=== PATIENT | female | born 1980 | race African-American/Black ===

== ENCOUNTER 2019-03-30 12:02 | Emergency (ER) | payer SELFPAY ==
--- NOTE | 2019-03-30 12:23 | ER Document Report ---
ED Medical Screen (RME) - General Chief Complaint: Abdominal Pain Stated Complaint: ABDOMINAL PAIN Time Seen by Provider: 03/30/19 12:15 Mode of Arrival: Ambulatory Information source: Patient Notes: Patient is a 39-year-old female G1, P0 who presents to the ER today approximately 4 months with no care. Patient states that she started having this pain that comes and goes in the right lower quadrant a few days ago with no burning with urination. Patient states that she has a mass in the right lower quadrant as well that she is concerned about. She has not taken a test since December when she had a positive one at home. TRAVEL OUTSIDE OF THE [place] IN LAST 30 DAYS: No - Related Data Allergies/Adverse Reactions: No Known Allergies Allergy (Unverified 03/30/19 12:05) Past Medical History - General Information source: Patient - Social History Chew tobacco use (# tins/day): No Frequency of alcohol use: None Drug Abuse: None Renal/ Medical History: Denies: Hx Peritoneal Dialysis Review of Systems - Review of Systems Female Genitourinary: See HPI Physical Exam - Vital signs Vitals: Temp Pulse Resp BP Pulse Ox 98.2 F 102 H 16 138/74 H 99 03/30/19 12:09 03/30/19 12:03/30/19 12:03/30/19 12:03/30/19 12:09 - Notes Notes: PHYSICAL EXAMINATION: GENERAL: Well-appearing and in no acute distress. ABDOMEN: Soft, no tenderness. No guarding, no rebound Course - Vital Signs Vital signs: Temp Pulse Resp BP Pulse Ox 98.2 F 102 H 16 138/74 H 99 03/30/19 12:03/30/19 12:03/30/19 12:03/30/19 12:03/30/19 12:09
--- NOTE | 2019-03-30 13:35 | RADIOLOGY REPORT (SQ) ---
EXAM DESCRIPTION: U/S OB 14+ TRNABD 1GES W/O DOP COMPLETED DATE/TIME: 03/30/2019 1:23 pm REASON FOR STUDY: 4 mos , no care, pain, mass? COMPARISON: None. TECHNIQUE: Static and Dynamic grayscale imaging performed of gravid uterus using transabdominal appr oac. Additional selected color Doppler and spectral images recorded. All stored on PACS. LIMITATIONS: None. FINDINGS: FETUSES SEEN:1 EGA: 19 weeks 1 day. Calculated using BPD,FL,HC,AC documented on images. Discrepancy with clinical d ates [place]: 08/23/2019 EFW: 295 g grams PERCENTILE: Not applicable. Fetus less than or equal to 20 weeks gestation. MACIE: Adequate amount. PLACENTA: Posterior. GRADE: I PRESENTATION: Variable. ANATOMY: HEART RATE: 158 beats per minute. FOUR CHAMBER HEART: Visualized. THREE VESSEL CORD: Yes. CORD INSERTION: Visualized. KIDNEYS AND BLADDER: Visualized. Appear normal. STOMACH: Visualized. Appears normal. SPINE: Normal as visualized. BRAIN AND LATERAL VENTRICLES: Visualized. Appear normal. OTHER: No other significant finding. MATERNAL ADNEXA: Ovaries are unremarkable. CERVICAL LENGTH: 2.4 cm. Closed. OTHER: Probable uterine fibroids. IMPRESSION: LIVING INTRAUTERINE . ESTIMATED GESTATIONAL AGE 19 WEEKS 1 DAY. NO VISUALIZED ANOMALIES. Trimester of : Second trimester - 13 weeks 1 day to 27 weeks 6 days. TECHNICAL DOCUMENTATION: JOB ID: [id number] [employer]- All Rights Reserved Reading location - IP/workstation name: [email or web address]
[2019-03-30 14:04] LABS: APPEARANCE,URINE CLEAR; BILIRUBIN,URINE NEGATIVE (NEGATIVE); COLOR,URINE STRAW; GLUCOSE, URINE NEGATIVE (NEGATIVE); KETONES,URINE NEGATIVE (NEGATIVE); LEUKOCYTE ESTERASE,URINE NEGATIVE (NEGATIVE); NITRITE,URINE NEGATIVE (NEGATIVE); PROTEIN,URINE NEGATIVE (NEGATIVE); URINE SPECIFIC GRAVITY 1.004; UROBILINOGEN,URINE NEGATIVE mg/dL (<2.0)
--- NOTE | 2019-03-30 15:27 | ER Document Report ---
ED General - General Chief Complaint: Abdominal Pain Stated Complaint: ABDOMINAL PAIN Time Seen by Provider: 03/30/19 12:15 Mode of Arrival: Ambulatory TRAVEL OUTSIDE OF THE [place] IN LAST 30 DAYS: No - HPI Notes: Patient is a 39-year-old female, , who presents to the emergency department for evaluation of her concerns of a mass in her abdomen. She states her last period was back in November. She states that when she took her positive test. She has not had any OB follow-up yet. She is still trying to work out insurance coverage. She denies any vaginal bleeding or discharge. She complains of some urinary frequency, denies any hematuria, or dysuria. No f bakari or chills. No nausea or vomiting. No other acute complaints or concerns. She denies any pain at this time. - Related Data Allergies/Adverse Reactions: No Known Allergies Allergy (Unverified 03/30/19 12:05) Past Medical History - General Information source: Patient - Social History Smoking Status: Never Smoker Chew tobacco use (# tins/day): No Frequency of alcohol use: None Drug Abuse: None Family History: Hypertension Patient has suicidal ideation: No Patient has homicidal ideation: No Renal/ Medical History: Denies: Hx Peritoneal Dialysis Review of Systems - Review of Systems Constitutional: No symptoms reported EENT: No symptoms reported Cardiovascular: No symptoms reported Respiratory: No symptoms reported Gastrointestinal: See HPI Genitourinary: No symptoms reported Female Genitourinary: See HPI Musculoskeletal: No symptoms reported Skin: No symptoms reported Neurological/Psychological: No symptoms reported Physical Exam - Vital signs Vitals: Temp Pulse Resp BP Pulse Ox 98.2 F 102 H 16 138/74 H 99 03/30/19 12:09 03/30/19 12:09 03/30/19 12:09 03/30/19 12:03/30/19 12:09 - Notes Notes: Vital signs reviewed, please refer to chart. Head is normocephalic, atraumatic. Pupils equal round, reactive to light. Neck is supple without meningismus. Heart is regular rate and rhythm. Lungs are clear to auscultation bilaterally. Abdomen is gravid with uterine fundus palpable just below the umbilicus. There is a 2-1/2 cm firm, palpable mass, nontender, and the right pelvis, the same consistency as the uterine body itself. No overlying skin changes. Extremities without cyanosis, clubbing. Posterior calves are nontender. Peripheral pulses are equal. Skin is warm and dry. Patient is awake, alert, neurological exam is nonfocal. Course - Re-evaluation Re-evalutation: 03/30/19 15:25 Patient presents emergency department for evaluation. The importance of evaluation by OB was stressed to the patient, and she voiced understanding. We will put in a referral to our on-call HEALTH INFORMATION TECHNOLOGIST. Patient had ultrasound and urinalysis. Urinalysis showed no definite abnormalities. Ultrasound revealed that this finding is most likely a fibroid. I will have the patient follow-up, she is to return to the ED with worsening or new concerning symptoms of any sort. - Vital Signs Vital signs: Temp Pulse Resp BP Pulse Ox 98.2 F 102 H 16 138/74 H 99 03/30/19 12:09 03/30/19 12:09 03/30/19 12:09 03/30/19 12:09 03/30/19 12:09 - Laboratory Result Diagrams: 03/30/19 15:03 03/30/19 15:03 Laboratory results interpreted by me: 03/30/19 12:26 Urine HCG, Qual POSITIVE H - Diagnostic Test Radiology reviewed: Reports reviewed Radiology results interpreted by me: 03/30/19 15:25 Obstetrics Ultrasound 03/30/19 12:16 IMPRESSION: LIVING INTRAUTERINE . ESTIMATED GESTATIONAL AGE 19 WEEKS 1 DAY. NO VISUALIZED ANOMALIES. Trimester of : Second trimester - 13 weeks 1 day to 27 weeks 6 days. Discharge - Discharge Clinical Impression: Uterine fibroid in antepartum period Condition: Stable Disposition: HOME, SELF-CARE Additional Instructions: On ultrasound, it appears that the lump you are feeling is a uterine fibroid. You need to follow-up with OB as soon as possible. Contact our on-call certified cytotechnologist, or the OB of your choice, upon discharge. If you develop vaginal bleeding, increased pain, or any other new or concerning symptoms, return immediately to the emergency department for evaluation. Referrals: NIKKI ALLEN MD [ACTIVE STAFF] - Follow up as needed
[2019-03-30 15:30] LABS: ABSOLUTE BASOPHILS # (AUTO) 0.1 10^3/uL (0.0-0.2); ABSOLUTE EOSINOPHILS # (AUTO) 0.1 10^3/uL (0.0-0.6); ABSOLUTE LYMPHOCYTES (AUTO) 1.9 10^3/uL (0.5-4.7); ABSOLUTE MONOCYTES (AUTO) 0.6 10^3/uL (0.1-1.4); ABSOLUTE NEUT (AUTO) 12.6 10^3/uL (1.7-8.2); BASOPHILS % (AUTO) 0.4 % (0-2); EOSINOPHILS % (AUTO) 0.6 % (0-6); HEMATOCRIT 38.1 % (36.0-47.0); HEMOGLOBIN 12.5 g/dL (12.0-15.5); LYMPHOCYTES % (AUTO) 12.5 % (13-45); MEAN CORPUSCULAR HEMOGLOBIN 28.2 pg (27.0-33.4); MEAN CORPUSCULAR HGB CONC 32.6 g/dL (32.0-36.0); MEAN CORPUSCULAR VOLUME 86 fl (80-97); MONOCYTES % (AUTO) 3.9 % (3-13); PLATELET COUNT 213 10^3/uL (150-450); RED BLOOD COUNT 4.41 10^6/uL (3.72-5.28); RED CELL DISTRIBUTION WIDTH 13.8 % (11.5-14.0); SEGMENTED NEUTROPHILS % (AUTO) 82.6 % (42-78); TOTAL CELLS COUNTED % (AUTO) 100 %; WHITE BLOOD COUNT 15.3 10^3/uL (4.0-10.5)
[2019-03-30 15:40] LABS: ANION GAP 10 (5-19); BLOOD UREA NITROGEN 9 mg/dL (7-20); CALCIUM 10.1 mg/dL (8.4-10.2); CARBON DIOXIDE 26 mmol/L (22-30); CHLORIDE 101 mmol/L (98-107); GLUCOSE 72 mg/dL (75-110); SODIUM 137.4 mmol/L (137-145)
[2019-03-30 16:01] VITALS: BP 106/60
== END 2019-03-30 16:02 | disposition home or self-care (01) ==
LOC: ER 12:02
DX: O34.10 Maternal care for benign tumor of corpus uteri, unspecified trimester (principal); O26.899 Other specified pregnancy related conditions, unspecified trimester; R35.0 Frequency of micturition; Z3A.00 Weeks of gestation of pregnancy not specified
CPT/HCPCS: 36415; 76805; 80048; 81001; 81025; 85025; 99284

== ENCOUNTER 2019-08-03 10:57 | Outpatient (CLI) | payer MEDICAID ==
--- NOTE | 2019-08-03 11:52 | Non Stress Test Report ---
Non Stress Test Datetime Report Generated by CPN: 08/03/2019 11:52 DEMOGRAPHIC EGA NST: 37.1 INDICATION Indication for Study: Ordered by Provider Indication for Study (NST) Other: repeat NST sent from the office VITAL SIGNS Temperature - NST: 98.3 Pulse - NST: 97 RESP - NST: 16 NBPSYS NST: 117 NBPDIA NST: 72 MONITORING Monitor Explained: Monitor Explained; Test Explained; Patient Verbalized Understanding Time on Monitor: 08/03/2019 11:17 Time off Monitor: 08/03/2019 11:51 NST Duration: 34 NST INTERVENTIONS NST Interventions: None Physician Notified NST: K Messer CNM BABY A: [id number] BABY A Movement : Present Contraction Frequency : x1 FHR Baseline : 135 Accelerations : 15X15 Decelerations : None Variability : Moderate 6-25bpm NST Review: Meets Criteria for Reactive NST NST Review and Verified By : Garcia Green RN NST Results: Reactive NST REPORT Report Trigger: Send Report
== END 2019-08-03 12:02 | disposition home or self-care (01) ==
LOC: LC 10:57
PROVIDERS: ATTEND Obstetrics & Gynecology
PROC: 4A1HXCZ Monitoring of Products of Conception, Cardiac Rate, External Approach (ICD-10-PCS; principal; 2019-08-03)
DX: O09.523 Supervision of elderly multigravida, third trimester (principal); Z3A.37 37 weeks gestation of pregnancy
CPT/HCPCS: 59025

== ENCOUNTER 2019-08-20 23:25 | Inpatient (IN) | payer MEDICAID ==
[2019-08-21 00:09] LABS: APPEARANCE,URINE SLIGHTLY-CLOUDY; BILIRUBIN,URINE NEGATIVE (NEGATIVE); COLOR,URINE YELLOW; GLUCOSE, URINE NEGATIVE (NEGATIVE); KETONES,URINE 20 mg/dL (NEGATIVE); LEUKOCYTE ESTERASE,URINE NEGATIVE (NEGATIVE); NITRITE,URINE NEGATIVE (NEGATIVE); PROTEIN,URINE 30 mg/dL (NEGATIVE); URINE SPECIFIC GRAVITY 1.015
[2019-08-21 00:31] LABS: URINE AMPHETAMINES SCREEN NEGATIVE; URINE BARBITURATES SCREEN NEGATIVE; URINE BENZODIAZEPINES SCREEN NEGATIVE; URINE COCAINE SCREEN NEGATIVE; URINE MARIJUANA (THC) SCREEN NEGATIVE; URINE METHADONE SCREEN NEGATIVE; URINE PHENCYCLIDINE SCREEN NEGATIVE
[2019-08-21] MEDS ORDERED: OXYTOCIN/NORMAL SALINE 20 UNIT/1,000 ML RTUINJ ONE (02:46)
[2019-08-21] MEDS ORDERED: MISOPROSTOL 0.2 MG TABLET ONE (02:46)
[2019-08-21] MEDS ORDERED: LIDOCAINE 1% INJ-PF (10 MG/ML) 30 ML SDV ONE (02:46)
[2019-08-21] MEDS ORDERED: OXYTOCIN 10 UNIT/ML VIAL ONE (02:46)
[2019-08-21 03:37] LABS: ABSOLUTE LYMPHOCYTES (AUTO) 1.4 10^3/uL (0.5-4.7); ABSOLUTE NEUT (AUTO) 9.6 10^3/uL (1.7-8.2); BASOPHILS % (AUTO) 0.2 % (0-2); EOSINOPHILS % (AUTO) 0.1 % (0-6); HEMATOCRIT 37.7 % (36.0-47.0); HEMOGLOBIN 12.5 g/dL (12.0-15.5); LYMPHOCYTES % (AUTO) 11.9 % (13-45); MEAN CORPUSCULAR HEMOGLOBIN 29.7 pg (27.0-33.4); MEAN CORPUSCULAR HGB CONC 33.2 g/dL (32.0-36.0); MEAN CORPUSCULAR VOLUME 89 fl (80-97); MONOCYTES % (AUTO) 8.6 % (3-13); PLATELET COUNT 183 10^3/uL (150-450); RED BLOOD COUNT 4.21 10^6/uL (3.72-5.28); RED CELL DISTRIBUTION WIDTH 13.4 % (11.5-14.0); SEGMENTED NEUTROPHILS % (AUTO) 79.2 % (42-78); TOTAL CELLS COUNTED % (AUTO) 100 %; WHITE BLOOD COUNT 12.1 10^3/uL (4.0-10.5)
[2019-08-21] MEDS ORDERED: NALBUPHINE HCL INJ 10 MG/1 ML AMPULE ONE ×2 (05:00→10:49)
[2019-08-21] MEDS ORDERED: NALBUPHINE HCL INJ 10 MG/1 ML AMPULE INJ ONE ×2 (05:15→10:50)
--- NOTE | 2019-08-21 05:40 | Admission Physical ---
Datetime Report Generated by CPN: 08/21/2019 05:39 CURRENT ADMISSION Chief Complaint: Uterine Contractions Indication for Induction: Not Applicable Admit Impression : Term, Intrauterine ; Active Labor Admit Plan: Admit to Unit; Initiate Labor Protocol ALLERGIES Medication Allergies: No Medication Allergies: No Known Allergies (08/20/2019) Latex: No Latex Allergies OBSTETRICAL HISTORY EDC: 08/23/2019 00:00 : 1 Para: 0 Term: 0 : 0 SAB: 0 IAB: 0 Ectopic: 0 Livin Cesareans: 0 VBACs: 0 Multiple Births: 0 Gestational Diabetes: No Rh Sensitization: No Incompetent Cervix: No JOSE: No Infertility: No ART Treatment: No Uterine Anomaly: No IUGR: No Hx Previous C/S: No Macrosomia: No Hx Loss/Stillborn: No PIH: No Hx : No Placenta Previa/Abruption: No Depression/PP Depression: No PTL/PROM: No Post Hemorrhage: No Current Procedures: Ultrasound; NST Obstetrical History Comments: G1- current SEE RECORDS Alcohol: No Marijuana : No Cocaine: No Other Illicit Drugs: No Cigarettes: Never Smoker. [id number] MEDICAL HISTORY Diabetes: No Blood Transfusion: No Pulmonary Disease (Asthma, TB): No Breast Disease: No Hypertension: No Tongue Binder Surgery: No Heart Disease: No Hosp/Surgery: No Autoimmune Disorder: No Anesthetic Complications: No Kidney Disease: No Abnormal Pap Smear: No Neuro/Epilepsy: No Psychiatric Disorders: No Other Medical Diseases: No Hepatitis/Liver Disease: No Significant Family History: No Varicosities/Phlebitis: No Trauma/Violence : No Thyroid Dysfunction: No INFECTIOUS HISTORY Gonorrhea: No Genital Herpes: No Chlamydia: No Tuberculosis: No Syphilis: No Hepatitis: No HIV/AIDS Exposure: No Rash or Viral Illness: No HPV: No PHYSICAL EXAM General: Normal HEENT: Normal Neurologic: Normal Thyroid: Normal Heart: Normal Lungs: Normal Breast: Normal Back: Normal Abdomen: Normal Genitourinary Exam: Normal Extremities: Normal DTRs: Normal Pelvic Type: Adequate Vital Signs: Reviewed; Within Normal Limits VAGINAL EXAM Dilatation: 4 Effacement: 90 Station: -1 Contraction Comments: q 2-4 MEMBRANES Membranes: Intact FETUS A EGA: 39.5 Monitoring: External US FHR- Baseline: 150s Accelerations: 15X15 Decelerations: None FHR Category: Category I Admit Comment: G1 with an IUP at 39-5/7 wks presents to L_D c/o contractions. She reports good movement. She is GBS Neg. Her cervix was 4 cm on admission and has progressed to 7 cm. She had SROM at 0445. PLANS FOR LABOR AND DELIVERY Labor and Delivery: None Pain Management: Natural Feeding Preference: Both Circumcision: N/A INFORMED CONSENT Signature: with User ID: [email or web address]
[2019-08-21] MEDS ORDERED: OXYTOCIN/NORMAL SALINE 20 UNIT/1,000 ML RTUINJ IV PRN ×2 (10:28→13:23)
[2019-08-21] MEDS ORDERED: AMPICILLIN SOD/SULBACTAM 3 GM VIAL IV ONE (13:22)
[2019-08-21] MEDS ORDERED: DIPH/PERTUSS(ACELL)/TETANUS VAC/PF 0.5 ML SYR (>=10YO) IM PRN (13:23)
[2019-08-21] MEDS ORDERED: BENZOCAINE/MENTHOL AEROSOL SPRAY 56 ML TOP PRN (13:23)
[2019-08-21] MEDS ORDERED: DIBUCAINE 1% OINTMENT 56 GM TP PRN (13:23)
[2019-08-21] MEDS ORDERED: ZOLPIDEM TARTRATE 5 MG TABLET PO PRN (13:23)
[2019-08-21] MEDS ORDERED: ACETAMINOPHEN WITH CODEINE #3 TABLET PO PRN (13:23)
[2019-08-21] MEDS ORDERED: MEASLES,MUMPS&RUBELLA VACC/PF 0.5 ML VIAL SUBCUT PRN (13:23)
[2019-08-21] MEDS ORDERED: IBUPROFEN 800 MG TABLET ONE (14:00)
[2019-08-21] MEDS ORDERED: AMPICILLIN SOD/SULBACTAM 3 GM VIAL ONE (14:00)
[2019-08-21] MEDS: IBUPROFEN 800 MG TABLET PO SCH ×2 (14:22→21:39)
--- NOTE | 2019-08-21 15:02 | Delivery Summary ---
Del Sum A-C Datetime Report Generated by CPN: 08/21/2019 15:02 DELIVERY PERSONNEL DELIVERY PERSONNEL: [id number] Delivery Doctor:: Karolina Bellamy CNM Labor and Delivery Nurse:: Lynda Carlson RNdirector of clinical services Nurse:: Anel Sierra RN Nursery Nurse:: Fernanda Chandler RN Nursery Nurse:: Marisela ESTES RN Door To Door Selling Agent/ALEX: Melodie Disla CNA II MATERNAL INFORMATION Delivery Anesthesia: None Medications After Delivery: Pitocin Bolus-Please Comment Meds After Delivery Comment: Pitocin 20 units in 1 L NS bolusing per order Delivery QBL: 300 Maternal Complications: None Provider Comments: of VFI, TRUNG position, crying, to mother's abdoman in stable condiiton, nursery present for delivery d/t mother receiving Nubain in labor. Cord clamped and cut after one minute. Cord blood obtained. Partial removal of the placenta due to edge of placenta in the Rt side of uterus would not release. Placenta intact upon inspection. pt tolerated well. FF w/ decreased lochia, Perineum intact. QBL 300 ml. Apgars 8,9. Pt plans to breastfeed. Will give one dose Unasyn 3 gm IV. Attending MD is Dr Egan LABOR SUMMARY EDC: 08/23/2019 00:00 No. Babies in Womb: 1 Attempted: Yes Labor Anesthesia: IV Sedation LABOR INFORMATION Reason for Induction: Not Applicable Onset of Labor: 08/21/2019 02:40 Complete Dilatation: 08/21/2019 12:45 Oxytocin: N/A Group B Beta Strep: negative Antibiotics # of Doses: 1 Antibiotics Time of Last Dose: 1400 Name of Antibiotic Given: unasyn 3 gm Steroids Given: None Reason Steroids Not Administered: Not Applicable MEMBRANES Membranes Rupture Method: Spontaneous Rupture of Membranes: 08/21/2019 04:45 Length of Rupture (hr): 8.22 Amniotic Fluid Color: Clear Amniotic Fluid Amount: Moderate Amniotic Fluid Odor: None STAGES OF LABOR Stage 1 hr: 10 Stage 1 min: 5 Stage 2 hr: 0 Stage 2 min: 13 Stage 3 hr: 0 Stage 3 min: 17 Total Time in Labor hr: 10 Total Time in Labor min: 35 VAGINAL DELIVERY Episiotomy: None Laceration #1: None Laceration Extension #1: N/A Laceration Repair: Not Applicable Sponge Count Correct: N/A Sharps Count Correct: N/A BABY A INFORMATION Infant Delivery Date/Time: 08/21/2019 12:58 Method of Delivery: Vaginal Born in Route : No : N/A Forceps: N/A Vacuum Extraction: N/A Shoulder Dystocia : No PRESENTATION/POSITION BABY A Presentation: Cephalic Cephalic Presentation: Vertex Vertex Position: Right Occipital Anterior Breech Presentation: N/A PLACENTA INFORMATION BABY A Placenta Delivery Time : 08/21/2019 13:15 Placenta Method of Delivery: Manual Removal Placenta Status: Delivered SCORES BABY A Heart Rate 1 min: >100 bpm Resp Effort 1 min: Good Cry Reflex Irritability 1 min: Cough or Sneeze or Pulls Away Muscle Tone 1 min: Active Motion Color 1 min: Blue/Pale Resuscitation Effort 1 min: Tactile Stimulation SCORE 1 MIN: 8 Heart Rate 5 min: >100 bpm Resp Effort 5 min: Good Cry Reflex Irritability 5 min: Cough or Sneeze or Pulls Away Muscle Tone 5 min: Active Motion Color 5 min: Body Kinsey, Extremities Blue Resuscitation Effort 5 min: Tactile Stimulation SCORE 5 MIN: 9 INFANT INFORMATION BABY A Gestational Age at Delivery: 39.5 Gestational Status: Full Term- 39- 40.6 Weeks Infant Outcome : Liveborn Infant Condition : Stable Infant Sex: Female IDENTIFICATION BABY A Verification Date/Time: 08/21/2019 13:12 ID Band Number: [id number] Mother's Name Verified: Yes RN Verifying Infant: Sahil CARLSON RN Additional Verifying Personnel: Que DISLA CNA II WEIGHT/LENGTH BABY A Birthweight (gm): 3109 Infant Weight (lb): 6 Weight (oz): 14 Length (in): 19.50 Infant Length (cm): 49.53 CORD INFORMATION BABY A No. Cord Vessels: 3 Nuchal Cord : N/A Cord Blood Taken: Yes-For Eval (Mom's Blood Type - or O+) Suction: None ASSESSMENT BABY A Infant Complications: None Physical Findings at Delivery: Within Normal Limits Infant Respirations: Appears Normal Skin to Skin: Yes Fiberglass Roller/ALS Called : No Care By: Emelina CHANDLER RN/ Marisela ESTES RN Transferred To: Remains with Mother BABY B INFORMATION : N/A SIGNATURES Assignment: Uriel Egan MD Signature: with User ID: [email or web address] : with User ID: [email or web address]
[2019-08-21] MEDS: DOCUSATE SODIUM 100 MG CAPSULE PO SCH (17:41)
[2019-08-21] MEDS: FERROUS SULFATE 325 MG TABLET PO SCH (17:42)
[2019-08-22] MEDS: IBUPROFEN 800 MG TABLET PO SCH ×3 (05:47→22:04)
[2019-08-22 08:20] LABS: HEMATOCRIT 30.8 % (36.0-47.0); MEAN CORPUSCULAR HEMOGLOBIN 29.6 pg (27.0-33.4); MEAN CORPUSCULAR HGB CONC 33.1 g/dL (32.0-36.0); MEAN CORPUSCULAR VOLUME 90 fl (80-97); PLATELET COUNT 162 10^3/uL (150-450); RED BLOOD COUNT 3.44 10^6/uL (3.72-5.28); RED CELL DISTRIBUTION WIDTH 13.9 % (11.5-14.0); WHITE BLOOD COUNT 21.1 10^3/uL (4.0-10.5)
[2019-08-22 08:22] LABS: HEMOGLOBIN 10.2 g/dL (12.0-15.5)
[2019-08-22] MEDS: DOCUSATE SODIUM 100 MG CAPSULE PO SCH ×2 (09:46→18:10)
[2019-08-22] MEDS: SENNOSIDES/DOCUSATE 8.6-50 MG 1 EACH TABLET PO SCH (09:46)
[2019-08-22] MEDS: FERROUS SULFATE 325 MG TABLET PO SCH ×2 (09:46→18:10)
[2019-08-22] MEDS: PRENATAL VITAMIN W DHA CAPSULE PO SCH (09:46)
--- NOTE | 2019-08-22 12:51 | PDOC PROGRESS REPORT ---
Subjective-OB Progress Note for:: 08/22/19 Subjective: 39yo G1 now P1 s/p ppd 1. Ambulating and voiding without difficulty. Reports bleeding stable, pain well controlled with medication, no concerns at this time. Physical Exam (OB) Vital Signs: Temp Pulse Resp BP Pulse Ox 97.9 F 89 16 113/79 99 08/22/19 07:56 08/22/19 07:56 08/22/19 07:56 08/22/19 07:56 08/22/19 07:56 Intake & Output 08/21/19 08/22/19 08/23/19 06:59 06:59 06:59 Weight 61.8 kg - General General Appearance: Appears well In distress: None - PIH/Pre-Eclampsia DTR's: 1 + Clonus: Negative Headache: Absent Epigastric Pain: No Visual Changes: No - Episiotomy/Laceration Site Condition: N/A - Lochia Lochia Amount: Scant < 10 ml Lochia Color: Rubra/Red - Abdomen Description: Soft, Round Hernia Present: No Fundal Description: Firm, Midline Fundal Height: u/u - u/2 - Respiratory Respiratory Status: No respiratory distress - Extremities Upper extremity: Normal inspection Lower extremities: Normal inspection - Neurological Cognition: Normal Orientation: AAOx4 - Psychological Associated symptoms: Flat affect Objective-Diagnostic Laboratory: 08/22/19 07:34 08/22/19 07:34 WBC 21.1 H RBC 3.44 L Hgb 10.2 L D Hct 30.8 L MCV 90 MCH 29.6 MCHC 33.1 RDW 13.9 Plt Count 162 Assessment and Plan(PN) - Assessment and Plan (1) Acute blood loss anemia Is this a current diagnosis for this admission?: Yes Plan: increase dietary iron and FeSO4 BID (2) (normal spontaneous vaginal delivery) Is this a current diagnosis for this admission?: Yes Plan: Routine pp care (3) Other placental conditions affecting management of mother, delivered Is this a current diagnosis for this admission?: Yes Plan: manual removal of placenta, monitor for s/s of infection - Time Spent with Patient Time with patient: Less than 15 minutes Medications reviewed and adjusted accordingly: Yes - Disposition Anticipated Discharge: Home Within: within 24 hours
[2019-08-23] MEDS: IBUPROFEN 800 MG TABLET PO SCH (06:53)
[2019-08-23 07:51] VITALS: BP 118/81
--- NOTE | 2019-08-23 08:42 | PDOC PROGRESS REPORT ---
Subjective-OB Progress Note for:: 08/23/19 Subjective: Ready to go home. Physical Exam (OB) Vital Signs: Temp Pulse Resp BP Pulse Ox 98.2 F 88 16 118/81 99 08/23/19 07:32 08/23/19 07:32 08/23/19 07:32 08/23/19 07:32 08/23/19 07:32 Intake & Output 08/22/19 08/23/19 08/24/19 06:59 06:59 06:59 Intake Total 450 Balance 450 - PIH/Pre-Eclampsia DTR's: 1 + Clonus: Negative Headache: Absent Epigastric Pain: No Visual Changes: No - Lochia Lochia Amount: Scant < 10 ml Lochia Color: Rubra/Red - Abdomen Description: Soft, Round Hernia Present: No Bowel Sounds: Normoactive Flatus Presence: Present Stool: No Fundal Description: Firm, Midline Fundal Height: u/u - u/2 Objective-Diagnostic Laboratory: 08/22/19 07:34 Assessment and Plan(PN) - Time Spent with Patient Medications reviewed and adjusted accordingly: Yes - Disposition Anticipated Discharge: Home
--- NOTE | 2019-08-23 08:50 | PDOC DISCHARGE SUMMARY ---
Impression - Admit/DC Date/PCP Admission Date/Primary Care Provider: 08/21/19 02:46 TRINA REYNAGA DO Discharge Date: 08/23/19 - Discharge Diagnosis (1) Acute blood loss anemia Is this a current diagnosis for this admission?: Yes (2) Advanced maternal age (AMA) in Is this a current diagnosis for this admission?: Yes (3) Insufficient antepartum care Is this a current diagnosis for this admission?: Yes (4) (normal spontaneous vaginal delivery) Is this a current diagnosis for this admission?: Yes (5) Other placental conditions affecting management of mother, delivered Is this a current diagnosis for this admission?: Yes - Additional Information Resuscitation Status: Full Code Discharge Diet: Regular Discharge Activity: Activity As Tolerated, Balance Activity w/Rest, Pelvic Rest, Slowly Increase Activity, No tub bath Referrals: TRINA PEDROZA DO [Primary Care Provider] - Prescriptions: Ferrous Sulfate [Feosol 325 mg Tablet] 325 mg PO BID #60 tablet Home Medications: Vit,Calc76/Iron/Folic [Prenatabs Rx Tablet] 1 tab PO DAILY 08/03/19 Ferrous Sulfate [Feosol 325 mg Tablet] 325 mg PO BID #60 tablet 08/23/19 HPI Gestational Age: 39.5 wks Reason(s) for Admission: Onset of Labor Procedures: Ultrasound Intrapartum Procedure(s): Spontaneous Vaginal Delivery Results Laboratory Results: WBC 21.1 10^3/uL (4.0-10.5) H 08/22/19 07:34 RBC 3.44 10^6/uL (3.72-5.28) L 08/22/19 07:34 Hgb 10.2 g/dL (12.0-15.5) L D 08/22/19 07:34 Hct 30.8 % (36.0-47.0) L 08/22/19 07:34 MCV 90 fl (80-97) 08/22/19 07:34 MCH 29.6 pg (27.0-33.4) 08/22/19 07:34 MCHC 33.1 g/dL (32.0-36.0) 08/22/19 07:34 RDW 13.9 % (11.5-14.0) 08/22/19 07:34 Plt Count 162 10^3/uL (150-450) 08/22/19 07:34 Lymph % (Auto) 11.9 % (13-45) L 08/21/19 03:21 [place] % (Auto) 8.6 % (3-13) 08/21/19 03:21 Eos % (Auto) 0.1 % (0-6) 08/21/19 03:21 Baso % (Auto) 0.2 % (0-2) 08/21/19 03:21 Absolute Neuts (auto) 9.6 10^3/uL (1.7-8.2) H 08/21/19 03:21 Absolute Lymphs (auto) 1.4 10^3/uL (0.5-4.7) 08/21/19 03:21 Absolute Monos (auto) 1.0 10^3/uL (0.1-1.4) 08/21/19 03:21 Absolute Eos (auto) 0.0 10^3/uL (0.0-0.6) 08/21/19 03:21 Absolute Basos (auto) 0.0 10^3/uL (0.0-0.2) 08/21/19 03:21 Seg Neutrophils % 79.2 % (42-78) H 08/21/19 03:21 Urine Color YELLOW 08/20/19 23:40 Urine Appearance SLIGHTLY-CLOUDY 08/20/19 23:40 Urine pH 6.0 (5.0-9.0) 08/20/19 23:40 Ur Specific [place] 1.015 08/20/19 23:40 Urine Protein 30 mg/dL (NEGATIVE) H 08/20/19 23:40 Urine Glucose (UA) NEGATIVE mg/dL (NEGATIVE) 08/20/19 23:40 Urine Ketones 20 mg/dL (NEGATIVE) H 08/20/19 23:40 Urine Blood NEGATIVE (NEGATIVE) 08/20/19 23:40 Urine Nitrite NEGATIVE (NEGATIVE) 08/20/19 23:40 Urine Bilirubin NEGATIVE (NEGATIVE) 08/20/19 23:40 Urine Urobilinogen 4.0 mg/dL (<2.0) H 08/20/19 23:40 Ur Leukocyte Esterase NEGATIVE (NEGATIVE) 08/20/19 23:40 Urine Ascorbic Acid NEGATIVE (NEGATIVE) 08/20/19 23:40 Urine Opiates Screen NEGATIVE 08/20/19 23:40 Urine Methadone Screen NEGATIVE 08/20/19 23:40 Ur Barbiturates Screen NEGATIVE 08/20/19 23:40 Ur Phencyclidine Scrn NEGATIVE 08/20/19 23:40 Ur Amphetamines Screen NEGATIVE 08/20/19 23:40 U Benzodiazepines Scrn NEGATIVE 08/20/19 23:40 Urine Cocaine Screen NEGATIVE 08/20/19 23:40 U Marijuana (THC) Screen NEGATIVE 08/20/19 23:40 RPR NONREACTIVE (NONREACTIVE) 08/21/19 03:21 Blood Type O POSITIVE 08/21/19 03:21 Antibody Screen NEGATIVE 08/21/19 03:21 Plan Plan of Treatment: Follow up at [facility] in 4 wks or prn. Pelvic rest x4-6 wks. Time Spent: Less than 30 Minutes
[2019-08-23] MEDS: DOCUSATE SODIUM 100 MG CAPSULE PO SCH (09:46)
[2019-08-23] MEDS: PRENATAL VITAMIN W DHA CAPSULE PO SCH (09:47)
[2019-08-23] MEDS: FERROUS SULFATE 325 MG TABLET PO SCH (09:47)
[2019-08-23] MEDS: SENNOSIDES/DOCUSATE 8.6-50 MG 1 EACH TABLET PO SCH (09:47)
[2019-08-23 10:13] LABS: HEMOGLOBIN 10.3 g/dL (12.0-15.5); MEAN CORPUSCULAR HEMOGLOBIN 29.7 pg (27.0-33.4); MEAN CORPUSCULAR HGB CONC 33.2 g/dL (32.0-36.0); MEAN CORPUSCULAR VOLUME 90 fl (80-97); PLATELET COUNT 194 10^3/uL (150-450); RED BLOOD COUNT 3.46 10^6/uL (3.72-5.28); RED CELL DISTRIBUTION WIDTH 13.7 % (11.5-14.0); WHITE BLOOD COUNT 12.7 10^3/uL (4.0-10.5)
== END 2019-08-23 13:24 | disposition home or self-care (01) | DRG 806 ==
LOC: LC 23:25 → LR 08-21 02:46 → 2S 08-21 15:15
PROVIDERS: ADMIT Obstetrics & Gynecology; ATTEND Obstetrics & Gynecology
PROC: 10E0XZZ Delivery of Products of Conception, External Approach (ICD-10-PCS; principal; 2019-08-21)
DX: O99.02 Anemia complicating childbirth (principal); D62 Acute posthemorrhagic anemia; Z37.0 Single live birth; Z3A.39 39 weeks gestation of pregnancy
CPT/HCPCS: 36415; 80307; 81005; 85025; 85027; 86592; 86850; 86900; 86901; 94760; J0295; J2300; J2590; J3490